=== PATIENT | female | born 1965 | race Caucasian/White ===

== ENCOUNTER 2019-10-19 14:56 | Emergency (ER) | payer SELFPAY ==
[~2019-10-19] VITALS: Ht 172.7 cm; Wt 78.9 kg
[~2019-10-19 14:56] MED LIST: ALBU90OI INH; ALBU90OI61 INH; AMOX500; AMOX500 PO; Albuterol17 G1 INH; CELE200 PO; CIPR500 PO; CIPRO500 MG PO; CYCL10 PO; DOXY100 PO; HYDACE5 PO; IBUP600 PO; IBUP800 PO; LEVFLO500 PO; MELO7.5 PO; Monodox100 MG PO; Mucinex600 MG PO; NAPR375 PO; NAPR500 PO; NAPR550 PO; Naprosyn500 MG PO; Norco 5-325 Ta1 EACH PO; OXYACE5T PO; PENVK500 PO; PRED20 PO; PROACE100 PO; PROCODE120 PO; PROM25 PO; Percocet 5-3251 EACH PO; Prednisone20 MG PO; RXNAPNA550 PO; SULTRIDS PO; TRAM50 PO
[2019-10-19 16:28] LABS: BASOPHILS ABSOLUTE AUTO 0.06 K/mm3 (0.00-0.23); BASOPHILS PERCENT AUTO 0 % (0-2); EOSINOPHILS ABSOLUTE AUTO 0.01 K/mm3 (0.00-0.68); EOSINOPHILS PERCENT AUTO 0 % (0-6); Hematocrit 39.7 % (33.0-51.0); Hemoglobin 13.2 g/dL (11.5-16.0); IMMATURE GRAN ABSOLUTE AUTO 0.27 K/mm3 (0.00-0.10); IMMATURE GRAN PERCENT AUTO 1 % (0-1); LYMPHOCYTES ABSOLUTE AUTO 0.53 K/mm3 (0.84-5.20); LYMPHOCYTES PERCENT AUTO 2 % (21-46); MONOCYTES ABSOLUTE AUTO 1.58 K/mm3 (0.16-1.47); MONOCYTES PERCENT AUTO 7 % (4-13); Mean Corpuscular HGB 29.4 pg (26.0-34.0); Mean Corpuscular HGB Conc 33.2 g/dL (31.5-36.5); Mean Corpuscular Volume 88 fL (80-100); Mean Platelet Volume 11.7 fL (9.1-12.4); NEUTROPHILS ABSOLUTE AUTO 19.49 K/mm3 (1.96-9.15); NEUTROPHILS PERCENT AUTO 89 % (41-73); Platelet Count 286 K/mm3 (150-400); RDW Coefficient Variation 12.5 % (11.7-14.2); Red Blood Cell Count 4.49 M/mm3 (3.80-5.20); White Blood Cell Count 21.94 K/mm3 (4.00-11.30)
[2019-10-19 16:31] LABS: Alanine Aminotransfer (ALT/SGP 38 U/L (12-78); Albumin, Blood 2.9 g/dL (3.4-5.0); Albumin/Globulin Ratio 0.6 (0.8-1.8); Alk Phos 245 U/L (50-136); Anion Gap 8 mmol/L (6-16); Aspartate Aminotrans (AST/SGOT 25 U/L (12-37); Bilirubin, Total 2.3 mg/dL (0.1-1.0); Blood Urea Nitrogen 8 mg/dL (8-24); CO2, Blood 27 mmol/L (21-32); Calcium, Blood 8.8 mg/dL (8.5-10.1); Chloride, Blood 98 mmol/L (98-108); Creatinine, Blood 0.67 mg/dL (0.40-1.00); Globulin, Blood 4.5 g/dL (2.2-4.0); Glomerular Filtration Rate >60 (60-); Glucose, Blood 122 mg/dL (70-99); Potassium, Blood 3.1 mmol/L (3.5-5.5); Sodium, Blood 133 mmol/L (136-145); Total Protein, Blood 7.4 g/dL (6.4-8.2)
[2019-10-19] MEDS ORDERED: AZIT250 PO ×2 (18:34)
[2019-10-20] MEDS ORDERED: ACET325 PO ×2 (01:14)
[2019-10-20] MEDS ORDERED: PEPCID40 MG PO ×2 (06:40)
[2019-10-20] MEDS ORDERED: NAPR220 PO ×2 (06:41)
== END 2019-10-19 18:43 | disposition home or self-care (01) ==
LOC: ER 14:56
PROVIDERS: Physician Assistant
DX: J18.9 Pneumonia, unspecified organism (principal); Z88.0 Allergy status to penicillin; F17.200 Nicotine dependence, unspecified, uncomplicated
CPT/HCPCS: 36415; 71260; 80053; 85025; 99284-25; Q9967

== ENCOUNTER 2019-10-19 20:20 | Inpatient (IN) | payer SELFPAY ==
[~2019-10-19] VITALS: Ht 172.7 cm; Wt 83.0 kg
[~2019-10-19 20:20] MED LIST changes: +AZIT250 PO
[2019-10-20] MEDS ORDERED: ACET325 PO ×2 (01:14)
--- NOTE | 2019-10-20 03:02 | NUR ---
A+O ABLE TO AMBULATE/INDENDENT IN ROOM, SMOKER, WANTED TO GO OUT TO SMOKE, WAS WILLING TO WAIT UNTIL ABX HAD FINISHED INFUSING, DISCUSSED PROBLEMS AND IMPLICATIONS OF GOING WITHOUT APPROPRIATE MEDICAL MONITORING BUT SHE FELT IT WAS WORTH THE RISK AND DAUGHTER SUPPORTED HER DECISION, STATED [employer] PATCH DIDN'T WORK FOR HER, DECLINED OFFER OF A WC, DAUGHTER AT SIDE, NO S/SX OF WEAKNESS OR DIZZINESS, INFORMED CH AND PMT THAT PT WOULD BE OUT OF RANGE
[2019-10-20 04:24] LABS: BASOPHILS ABSOLUTE AUTO 0.06 K/mm3 (0.00-0.23); BASOPHILS PERCENT AUTO 0 % (0-2); EOSINOPHILS PERCENT AUTO 0 % (0-6); Hematocrit 37.6 % (33.0-51.0); Hemoglobin 12.4 g/dL (11.5-16.0); IMMATURE GRAN ABSOLUTE AUTO 0.15 K/mm3 (0.00-0.10); IMMATURE GRAN PERCENT AUTO 1 % (0-1); LYMPHOCYTES ABSOLUTE AUTO 0.51 K/mm3 (0.84-5.20); LYMPHOCYTES PERCENT AUTO 3 % (21-46); MONOCYTES ABSOLUTE AUTO 1.48 K/mm3 (0.16-1.47); MONOCYTES PERCENT AUTO 8 % (4-13); Mean Corpuscular HGB 29.1 pg (26.0-34.0); Mean Corpuscular Volume 88 fL (80-100); Mean Platelet Volume 11.9 fL (9.1-12.4); NEUTROPHILS ABSOLUTE AUTO 17.54 K/mm3 (1.96-9.15); NEUTROPHILS PERCENT AUTO 89 % (41-73); Platelet Count 276 K/mm3 (150-400); RDW Coefficient Variation 12.7 % (11.7-14.2); RDW Standard Deviation 41.5 fL (35.1-46.3); Red Blood Cell Count 4.26 M/mm3 (3.80-5.20); White Blood Cell Count 19.74 K/mm3 (4.00-11.30)
[2019-10-20 04:40] LABS: Anion Gap 6 mmol/L (6-16); Blood Urea Nitrogen 6 mg/dL (8-24); Bun/Creatinine Ratio 10.4 (12.0-20.0); CO2, Blood 27 mmol/L (21-32); Calcium, Blood 8.4 mg/dL (8.5-10.1); Chloride, Blood 103 mmol/L (98-108); Creatinine, Blood 0.58 mg/dL (0.40-1.00); Glomerular Filtration Rate >60 (60-); Glucose, Blood 112 mg/dL (70-99); Potassium, Blood 2.9 mmol/L (3.5-5.5); Sodium, Blood 136 mmol/L (136-145)
[2019-10-20 05:00] LABS: Adenovirus Not Detected (NOT DETECT); Bordetella pertussis Not Detected (NOT DETECT); Chlamydophila pneumoniae Not Detected (NOT DETECT); Coronavirus 229E Not Detected (NOT DETECT); Coronavirus HKU1 Not Detected (NOT DETECT); Coronavirus NL63 Not Detected (NOT DETECT); Coronavirus OC43 Not Detected (NOT DETECT); Human Metapneumovirus Not Detected (NOT DETECT); Human Rhinovirus/Enterovirus Not Detected (NOT DETECT); Influenza A Not Detected (NOT DETECT); Influenza A/2009-H1 Not Detected (NOT DETECT); Influenza A/H1 Not Detected (NOT DETECT); Influenza A/H3 Not Detected (NOT DETECT); Influenza B Not Detected (NOT DETECT); Mycoplasma pneumoniae Not Detected (NOT DETECT); Parainfluenza Virus 1 Not Detected (NOT DETECT); Parainfluenza Virus 2 Not Detected (NOT DETECT); Parainfluenza Virus 3 Not Detected (NOT DETECT); Parainfluenza Virus 4 Not Detected (NOT DETECT); Respiratory Syncytial Virus Not Detected (NOT DETECT)
[2019-10-20] MEDS ORDERED: PEPCID40 MG PO ×2 (06:40)
[2019-10-20] MEDS ORDERED: NAPR220 PO ×2 (06:41)
--- NOTE | 2019-10-20 07:17 | NUR ---
a+o, able to make needs knownm, family in room, potassium and lr running , had to reduce the rate for the kcl for pain control, denied pain at 20, so that is the current rate, will continue to monitor, passed this information on to day staff, bed in low position, call light in reach, abx given as prescribed no s/sx of pnemonia noted
--- NOTE | 2019-10-20 09:32 | NUR ---
pt sitting up on side of the bed, daughter at bedside, pt is a/ox3, pleasant and cooperative with care, but did insist on going out to smoke this am, lungs are pretty clear, a light coursness in bases, resp even and unlabored, no cough noted, but does report a productive cough of yellow sputum, is currently on r/a sats are in the 94% range, hrr, tele in place, running st in low 100's, no edema noted, ppp+2, cap refill <3sec, vs stable, afebrile, iv site is clear and patent, infusing ns and potassium, potassium is running slow so pt can tolerate, btx4, abd flat soft nontender, voids without diff, skin c/w/d, araceli cha, call light in reach.
--- NOTE | 2019-10-20 14:22 | NUR ---
pt has been changed to medical status, she will be transfered when room available, family in room, she states she's doing pretty well, no complaints, call light in reach.
--- NOTE | 2019-10-20 19:32 | NUR ---
SHIFT SUMMARY PT AXO PLEASANT AND COOPERATIVE WITH CARE. UP AD CHARLIE IN ROOM. REQUESTS TO UP SALINE LOCKED SO THAT SHE CAN GO OUTSIDE TO SMOKE. REFUSED SMOKING CESSATION EDUCATION. PT REPORTS CONSTIPATION AND COMPLAINS OF POOR APPETITE. VSS THOUGH PT HR TACHY. PT INSISTS IN HAVING BED ELEVATED SLIGHTLY DUE TO PT HEIGHT. CALL LIGHT WITHIN REACH.
--- NOTE | 2019-10-21 02:22 | NUR ---
ASSUMED CARE OF PT TONIGHT/ PT AMBULATORY AND WENT OUTSIDE WITH DAUGHTER VIA CHAIR.NO ACUTE DISTRESS NOTED. SITTING ON EDGE OF BED UPON RETURN TO ROOM. DAUGHTER SLEEPING IN CHAIR AT BEDSIDE.
[2019-10-21 05:39] LABS: BASOPHILS ABSOLUTE AUTO 0.07 K/mm3 (0.00-0.23); BASOPHILS PERCENT AUTO 0 % (0-2); EOSINOPHILS PERCENT AUTO 0 % (0-6); Hematocrit 36.9 % (33.0-51.0); Hemoglobin 12.1 g/dL (11.5-16.0); IMMATURE GRAN ABSOLUTE AUTO 0.18 K/mm3 (0.00-0.10); IMMATURE GRAN PERCENT AUTO 1 % (0-1); LYMPHOCYTES ABSOLUTE AUTO 0.62 K/mm3 (0.84-5.20); LYMPHOCYTES PERCENT AUTO 3 % (21-46); MONOCYTES ABSOLUTE AUTO 1.46 K/mm3 (0.16-1.47); MONOCYTES PERCENT AUTO 8 % (4-13); Mean Corpuscular HGB 28.5 pg (26.0-34.0); Mean Corpuscular HGB Conc 32.8 g/dL (31.5-36.5); Mean Corpuscular Volume 87 fL (80-100); Mean Platelet Volume 10.9 fL (9.1-12.4); NEUTROPHILS ABSOLUTE AUTO 15.82 K/mm3 (1.96-9.15); NEUTROPHILS PERCENT AUTO 87 % (41-73); Platelet Count 340 K/mm3 (150-400); RDW Coefficient Variation 13.1 % (11.7-14.2); RDW Standard Deviation 41.3 fL (35.1-46.3); Red Blood Cell Count 4.24 M/mm3 (3.80-5.20); White Blood Cell Count 18.15 K/mm3 (4.00-11.30)
[2019-10-21 06:00] LABS: Anion Gap 6 mmol/L (6-16); Blood Urea Nitrogen 7 mg/dL (8-24); Bun/Creatinine Ratio 12.5 (12.0-20.0); CO2, Blood 28 mmol/L (21-32); Calcium, Blood 8.9 mg/dL (8.5-10.1); Chloride, Blood 104 mmol/L (98-108); Creatinine, Blood 0.56 mg/dL (0.40-1.00); Glomerular Filtration Rate >60 (60-); Glucose, Blood 106 mg/dL (70-99); Potassium, Blood 3.1 mmol/L (3.5-5.5); Sodium, Blood 138 mmol/L (136-145)
[2019-10-21] MEDS ORDERED: PRED20 PO ×2 (08:54)
[2019-10-21] MEDS ORDERED: LEVOFLOXACIN750 MG PO ×2 (08:55)
[2019-10-21] MEDS ORDERED: AIRDUO RESPICL1 EAC3 INH ×2 (08:56)
[2019-10-21] MEDS ORDERED: TUSSIN DM SYRU118 ML PO ×2 (09:04)
--- NOTE | 2019-10-21 11:13 | NUR ---
PT DISCHARGED PT DISCHARGED AT 1111. PT IN STABLE CONDITION. HOME O2 EVAL COMPLETED & NO O2 NEEDED. PT & DAUGHTER EDUCATED ON DC INSTRUCTIONS AND DENIED FURTHER NEED AT THIS TIME. CARE MANAGMENT TO FOLLOW UP WITH PT FOR PCP AND PULMONOLOGY FOLLOW UPS. PT WHEELED OUT BY AIDE AND DRIVEN HOME BY DAUGHTER.
--- NOTE | 2019-10-21 11:32 | NUR ---
Advance Directive education/spiritual care visit conducted. Upon receiving an admit referral for advance directive education and spiritual care, I visit patient. Patient is sitting on EOB and alert. Patient tells me that she is in process of DC. She asks for A.D. booklets for herself and her which I gladly supply. I educate patient on the the different sections of A.D. and the filing process. Patient receives the booklet and states that she will fill the A.D. booklet out with her and then turn them in. I also provide spiritual care. I discuss with patient about her spiritual beliefs and her needs. Patient affirms that she would like me to say a prayer. I gladly provide prayer. Patient then explains more about her sha system and her husbands spiritual journey. I listen empathically and provide spiritual guidance and emotional suport. Patient responds well and voices appreciation for the visit.
== END 2019-10-21 11:13 | disposition home or self-care (01) | DRG 871 ==
LOC: ER 20:20 → PCU 10-20 00:56 → MEDS 10-20 00:56 → PCU 10-20 01:12 → MEDS 10-20 16:21 → EDPENDDIS 10-21 08:20 → ENPENDDIS 10-21 08:20 → MEDS 10-21 11:13
PROVIDERS: Internal Medicine; ADMIT Family Medicine
DX: A41.9 Sepsis, unspecified organism (principal); J18.9 Pneumonia, unspecified organism; E87.1 Hypo-osmolality and hyponatremia; J44.0 Chronic obstructive pulmonary disease with (acute) lower respiratory infection; E87.6 Hypokalemia; F17.210 Nicotine dependence, cigarettes, uncomplicated
CPT/HCPCS: 0099U; 36415; 80048; 83605; 83735; 84132; 85025; 87070; 87205; 94640; 94760; 94761; 96365; 96366; 96367; 99285-25; A9270; J0696; J1956; J3480; J7030; J7120

== ENCOUNTER → 2019-10-30 | Outpatient (CLI) | payer SELFPAY ==
[~2019-10-30] MED LIST changes: +ACET325 PO; +AIRDUO RESPICL1 EAC3 INH; +LEVOFLOXACIN750 MG PO; +NAPR220 PO; +PEPCID40 MG PO; +TUSSIN DM SYRU118 ML PO
[2019-10-30 13:47] LABS: Hematocrit 32.6 % (33.0-51.0); Mean Corpuscular HGB 29.1 pg (26.0-34.0); Mean Corpuscular HGB Conc 33.7 g/dL (31.5-36.5); Mean Corpuscular Volume 86 fL (80-100); Mean Platelet Volume 9.5 fL (9.1-12.4); Platelet Count 652 K/mm3 (150-400); RDW Coefficient Variation 13.8 % (11.7-14.2); RDW Standard Deviation 43.9 fL (35.1-46.3); Red Blood Cell Count 3.78 M/mm3 (3.80-5.20); White Blood Cell Count 27.68 K/mm3 (4.00-11.30)
[2019-10-30 13:53] LABS: Anion Gap 7 mmol/L (6-16); Blood Urea Nitrogen 5 mg/dL (8-24); Bun/Creatinine Ratio 7.1 (12.0-20.0); CO2, Blood 30 mmol/L (21-32); Calcium, Blood 7.9 mg/dL (8.5-10.1); Chloride, Blood 92 mmol/L (98-108); Glomerular Filtration Rate >60 (60-); Glucose, Blood 103 mg/dL (70-99); Potassium, Blood 3.3 mmol/L (3.5-5.5); Sodium, Blood 129 mmol/L (136-145)
[2019-10-30 14:44] LABS: BAND PERCENT MAN 3 % (0-8); BASOPHILS PERCENT MAN 0 % (0-2); EOSINOPHILS PERCENT MAN 0 % (0-6); LYMPHOCYTES ABSOLUTE MAN 0.83 K/mm3 (0.84-5.20); LYMPHOCYTES PERCENT MAN 3 % (21-46); MONOCYTES ABSOLUTE MAN 1.93 K/mm3 (0.16-1.47); MONOCYTES PERCENT MAN 7 % (4-13); NEUTROPHILS ABSOLUTE MAN 24.91 K/mm3 (1.96-9.15); SEG NEUTROPHILS PERCENT MAN 87 % (41-73); TOTAL CELLS COUNTED 100
== END | disposition home or self-care (01) ==
LOC: LAB EV 13:43 → LAB SHORT 13:43
PROVIDERS: Physician Assistant Surgical
DX: J18.9 Pneumonia, unspecified organism (principal)
CPT/HCPCS: 80048; 83880; 85025